=== PATIENT | female | born 1985 | race American Indian/Alaskan Native ===

== ENCOUNTER 2018-06-07 12:56 | Day surgery (SDC) | payer BC ==
[2018-06-07] MEDS ORDERED: Sodium Chloride 0.9% 1,000 ML IV ONE (13:48)
[2018-06-07 14:10] LABS: BASO % 0.6 % (0.0-2.0); EOS % 0.3 % (0.0-4.0); LYMPH # 1.1 K/uL (1.0-4.3); LYMPH % 13.3 % (20.0-40.0); MEAN CORPUSCULAR HEMOGLOBIN 21.2 pg (27.0-31.0); MEAN CORPUSCULAR HGB CONC 30.7 g/dL (33.0-37.0); MEAN PLATELET VOLUME 7.8 fL (7.2-11.7); MONO # 0.4 K/uL (0.0-0.8); MONO % 4.8 % (0.0-10.0); NEUT # 6.5 K/uL (1.8-7.0); RBC 4.7 Mil/uL (3.80-5.20); RED CELL DISTRIBUTION WIDTH 19.3 % (11.5-14.5)
[2018-06-07 14:15] VITALS: O2SAT 100; BMI 34.9
[2018-06-07 14:18] LABS: INR 1.2; PROTHROMBIN TIME 13.5 SECONDS (9.7-12.2)
[2018-06-07 14:23] LABS: SQUAMOUS EPITHIAL 2 /hpf (0-5); URINE BACTERIA RARE (<OCC); URINE BILIRUBIN NEGATIVE (NEGATIVE); URINE BLOOD 3+ (NEGATIVE); URINE CLARITY Hazy (Clear); URINE COLOR Yellow (YELLOW); URINE GLUCOSE (UA) NORMAL (Normal); URINE LEUKOCYTE ESTERASE NEG Leu/uL (Negative); URINE PROTEIN 2+ mg/dL (NEGATIVE); URINE UROBILINOGEN NORMAL mg/dL (0.2-1.0)
[2018-06-07 14:27] LABS: ALB/GLOB RATIO 1.3 (1.0-2.1); ALBUMIN 4.5 g/dL (3.5-5.0); ALT/SGPT 23 U/L (9-52); AST/SGOT 28 U/L (14-36); BLOOD UREA NITROGEN 7 mg/dL (7-17); CALCIUM 9.2 mg/dl (8.6-10.4); GFR NON-AFRICAN AMERICAN > 60
--- NOTE | 2018-06-07 15:04 | CP.PCM.HP ---
History of Present Illness - History of Present Illness History of Present Illness: 33y/o P0 LMP 06/06/2018 referred to ER after intially being evlauted for seere pelvic pain x 1 week. Pt preorts intial onsent on 05/29 with Right flank pain on thanksgiving constant with nause and ovmitng. pt when to ER in which a CT sca was done significant for 10cm right adnexla mass 4.4 cm left adnexl mass supscion for dermoid adn 10cm myoma. pt preorte the sharp severe pain only somewhat imrpoved with Tradmadol adn was dc home adn instructed to f/u o/p with hair designer. pt seen this mornign in my officed c/o severe 10/10 right flank pain, with no allevaitn factors. tp preorts the pain wax and wanes makign it difficyt to walk adn was uable to go to work today. pt reports nause and vomtiing. pt dneis any fever, chills, chest pain, sob, bowel or bladder compliants. Pt was referred to er to rule out ovarian torsin. While evated in ER pt complaing of severe rlq pain radiating to right flank /. OB: P0 STRUCTURES ENGINEER: fibroids, b/l ovarian cyst no pap, no sti LMP 06/06/18 duration 5 days PMH: Asthma, Hay Fever PSH: denies FHX: non contribory SHX: negative etoh/tboacc/drugs MEDS: Tramdol prn zofran prn, montelukast prn NKDA Present on Admission - Present on Admission Any Indicators Present on Admission: No Review of Systems - Review of Systems All systems: reviewed and no additional remarkable complaints except Review of Systems: distress - Constitutional Constitutional: As Per HPI - EENT Eyes: As Per HPI - Breasts Breasts: As Per HPI. absent: Change in Shape, Mass, Pain, Nipple Discharge, Nipple Inversion, Skin Changes, Swelling, Other - Cardiovascular Cardiovascular: As Per HPI - Respiratory Respiratory: absent: As Per HPI, Cough, Dyspnea, Hemoptysis, Dyspnea on Exertio n, Wheezing, Snoring, Stridor, Pain on Inspiration, Chest Congestion, Excessive Mucous Production, Change in Mucous Color, Pain with Coughing, Other - Gastrointestinal Gastrointestinal: Abdominal Pain, Bloating, Cramping - Genitourinary Genitourinary: As Per HPI - Reproductive: Female Reproductive:Female: As Per HPI - Menstruation Menstruation: As Per HPI - Musculoskeletal Musculoskeletal: As Per HPI, Muscle Weakness, Radiating Pain into Limb - Integumentary Integumentary: As Per HPI - Neurological Neurological: As Per HPI Past Patient History - Infectious Disease Hx of Infectious Diseases: None - Tetanus Immunizations Tetanus Immunization: Unknown - Past Medical History & Family History Past Medical History?: Yes Past Family History: Reviewed and not pertinent - Past Social History Smoking Status: Never Smoked Chewing Tobacco Use: No Cigar Use: No Alcohol: None - PULMONARY Hx Asthma: Yes (Sports enduced) - RENAL Other/Comment: Hey fever - PSYCHIATRIC Hx Substance Use: No - SURGICAL HISTORY Hx Surgeries: No - ANESTHESIA Hx Anesthesia: No Meds Allergies/Adverse Reactions: Allergies Allergy/AdvReac Type Severity Reaction Status Date / Time No Known Allergies Allergy Verified 06/07/18 13:32 Physical Exam - Constitutional Appears: Well, In Acute Distress - Head Exam Head Exam: ATRAUMATIC, NORMAL INSPECTION - Eye Exam Eye Exam: EOMI, Normal appearance Pupil Exam: PERRL - ENT Exam ENT Exam: Mucous Membranes Dry, Normal Exam - Respiratory Exam Respiratory Exam: Clear to Auscultation Bilateral, NORMAL BREATHING PATTERN - Cardiovascular Exam Cardiovascular Exam: +S1, +S2 - GI/Abdominal Exam GI & Abdominal Exam: Guarding, Soft, Tenderness - Rectal Exam Additional comments: External Gential Grosly normal Interla exam dererred- Results - Vital Signs Recent Vital Signs: Last Vital Signs Temp 98.1 F 06/07/18 13:41 Pulse 80 06/07/18 13:41 Resp 16 06/07/18 13:41 BP 123/77 06/07/18 13:41 Pulse Ox 100 06/07/18 13:41 - Labs Result Diagrams: 06/07/18 14:05 06/07/18 14:05 Labs: Laboratory Results - last 24 hr 06/07/18 06/07/18 06/07/18 14:05 14:05 14:05 WBC 8.0 RBC 4.70 Hgb 10.0 L Hct 32.4 L MCV 69.0 L MCH 21.2 L MCHC 30.7 L RDW 19.3 H Plt Count 337 MPV 7.8 Neut % (Auto) 81.0 H Lymph % (Auto) 13.3 L [place] % (Auto) 4.8 Eos % (Auto) 0.3 Baso % (Auto) 0.6 Neut # (Auto) 6.5 Lymph # (Auto) 1.1 [place] # (Auto) 0.4 Eos # (Auto) 0.0 Baso # (Auto) 0.0 PT 13.5 H INR 1.2 APTT 38 H Sodium Potassium Chloride Carbon Dioxide Anion Gap BUN Creatinine Est GFR ( Amer) Est GFR (Non-Af Amer) Random Glucose Calcium Total Bilirubin AST ALT Alkaline Phosphatase Total Protein Albumin Globulin Albumin/Globulin Ratio Urine Color Yellow Urine Clarity Hazy Urine pH 5.0 Ur Specific Bradley 1.034 H Urine Protein 2+ H Urine Glucose (UA) Normal Urine Ketones 2+ H Urine Blood 3+ H Urine Nitrate Negative Urine Bilirubin Negative Urine Urobilinogen Normal Ur Leukocyte Esterase Neg Urine WBC (Auto) 2 Urine RBC (Auto) 3121 H Ur Squamous Epith Cells 2 Urine Bacteria Rare 06/07/18 14:05 WBC RBC Hgb Hct MCV MCH MCHC RDW Plt Count MPV Neut % (Auto) Lymph % (Auto) [place] % (Auto) Eos % (Auto) Baso % (Auto) Neut # (Auto) Lymph # (Auto) [place] # (Auto) Eos # (Auto) Baso # (Auto) PT INR APTT Sodium 137 Potassium 3.7 Chloride 100 Carbon Dioxide 23 Anion Gap 17 BUN 7 Creatinine 0.8 Est GFR ( Amer) > 60 Est GFR (Non-Af Amer) > 60 Random Glucose 89 Calcium 9.2 Total Bilirubin 1.0 AST 28 ALT 23 Alkaline Phosphatase 82 Total Protein 8.1 Albumin 4.5 Globulin 3.6 Albumin/Globulin Ratio 1.3 Urine Color Urine Clarity Urine pH Ur Specific Bradley Urine Protein Urine Glucose (UA) Urine Ketones Urine Blood Urine Nitrate Urine Bilirubin Urine Urobilinogen Ur Leukocyte Esterase Urine WBC (Auto) Urine RBC (Auto) Ur Squamous Epith Cells Urine Bacteria Assessment & Plan (1) Ovarian torsion Assessment and Plan: 33 yo with severe pelvic pain seocndary to b/l pelvic mass, fibroids, suspcion for ovarian torsion -admit -investor relations manager to or -r/b/a/i of dx lap possible open oviarn cystecotmy possible oophrecotmy possible myoemcotmy possible open dw paeitn -OR/anestheis aware -labs -scds -abodminal prep Status: Acute (2) Adnexal mass Status: Acute (3) Pelvic pain Status: Acute (4) Fibroids Status: Acute
[2018-06-07] MEDS ORDERED: Bupivacaine-Epi 0.5%-1:200,000 PF Inj ONE (16:00)
[2018-06-07] MEDS ORDERED: ceFAZolin 1 gm FROZEN Premix 2 GM/100 ML ML IVPB ONE (16:00)
[2018-06-07] MEDS ORDERED: Midazolam 2 MG/2 ML VIAL ONE (16:04)
[2018-06-07] MEDS ORDERED: Rocuronium 10 mg/ml (5 ml) ONE ×2 (16:04→17:15)
[2018-06-07] MEDS ORDERED: Succinylcholine Chloride 20 mg/ml Syr (5 ml) IV ONE (16:04)
[2018-06-07] MEDS ORDERED: Propofol 10 mg/ml Inj (20 ML) ONE (16:04)
--- NOTE | 2018-06-07 16:49 | C.PDOC ---
History Of Present Illness 33 y/o female presents to ED with c/o right flank pain for "couple of days". Patient seen at [facility] yesterday, had CT scan that showed large pelvic mass. Patient states she went to CHILD NUTRITION DIRECTOR doctor today and recommended stat ultrasoun d and x lab to be done. Patient currently on menses and admits to vomiting for 2 days, denies fever, chills, diarrhea, dysuria or any other complaints at this time. Chief Complaint (Nursing): Abdominal Pain History Per: Patient History/Exam Limitations: no limitations Onset/Duration Of Symptoms: Days Current Symptoms Are (Timing): Still Present Past Medical History Reviewed: Historical Data, Nursing Documentation, Vital Signs Vital Signs: Last Vital Signs Temp 98.1 F 06/07/18 13:41 Pulse 80 06/07/18 13:41 Resp 16 06/07/18 13:41 BP 123/77 06/07/18 13:41 Pulse Ox 100 06/07/18 13:41 - Medical History PMH: Asthma (Sports enduced) Surgical History: No Surg Hx Family History: States: No Known Family Hx - Social History Hx Alcohol Use: No Hx Substance Use: No - Immunization History Hx Tetanus Toxoid Vaccination: No Hx Influenza Vaccination: No Hx Pneumococcal Vaccination: No Review Of Systems Constitutional: Negative for: Fever, Chills Gastrointestinal: Positive for: Vomiting, Abdominal Pain Genitourinary: Positive for: Other (flank pain). Negative for: Dysuria, Vaginal Discharge Skin: Negative for: Rash Physical Exam - Physical Exam Appears: Non-toxic, No Acute Distress Skin: Warm, Dry, No Rash Head: Atraumatic, Normacephalic Eye(s): bilateral: Normal Inspection Oral Mucosa: Moist Neck: Supple Cardiovascular: Rhythm Regular Respiratory: Normal Breath Sounds, No Rales, No Rhonchi, No Wheezing Gastrointestinal/Abdominal: Soft, Tenderness (Bilateral lower abdominal R>L), No Guarding, No Rebound Back: No CVA Tenderness Neurological/Psych: Oriented x3, Normal Speech, Normal Cognition ED Course And Treatment - Laboratory Results Result Diagrams: 06/07/18 14:05 06/07/18 14:05 O2 Sat by Pulse Oximetry: 100 (RA) Pulse Ox Interpretation: Normal Progress Note: D/w Dr. Barros CHILD NUTRITION DIRECTOR, took patient to OR for exploration. Disposition - Disposition Disposition: HOSPITALIZED Disposition Time: 15:10 Condition: GUARDED - Clinical Impression Clinical Impression: Flank pain - Scribe Statement The provider has reviewed the documentation as recorded by the Payalibeddie Prescott All medical record entries made by the Payalibeddie were at my direction and personally dictated by me. I have reviewed the chart and agree that the record accurately reflects my personal performance of the history, physical exam, medical decision making, and the department course for this patient. I have also personally directed, reviewed, and agree with the discharge instructions and disposition.
[2018-06-07] MEDS ORDERED: Neostigmine Methylsulfate 3mg/3ml Syringe IV ONE (17:31)
[2018-06-07] MEDS ORDERED: HYDROmorphone 0.5 mg/0.5 ml ISec IVP PRN (18:22)
--- NOTE | 2018-06-07 18:26 | PCM.SURG1 ---
Surgeon's Initial Post Op Note - Surgeon's Notes Surgeon: Shandra Barros MD Voice And Data Technician: Agustín Moralez MD Type of Anesthesia: General Endo Pre-Operative Diagnosis: Pelvic pain, ovarian torsion, bilatearl adnexal masses, leiomyomas Operative Findings: enlarged 15 week sizse fibriod uteurs, anterior myoma peduncated alogn anterio surface 7cm, enlarge right ovairan dermoid 10cm, left ovarian cyst 4cm appears physicolgic . right ovary and falloopian tue with torsion x 3 with blue dusk detorsed with good pefursion. Dr Agustín Moralez was surgical aides teacher and present for entire case adn essential in gainign laparasocpic entry, holidng camera, retraction, epxousre, helping to dissection dermoid ovairan cyst, obtian hejmostais and clsoe all layers Post-Operative Diagnosis: same as above, and ovarian detorsion Operation Performed: Ooperative laparscopy, right ovary adn fallopian tube detorsion, right ovarian cystecotmy, pelvic washings Specimen/Specimens Removed: pelvic washings, right ovarian cyst wall Estimated Blood Loss: EBL {In ML}: 25 Blood Products Given: N/A Drains Used: No Drains Post-Op Condition: Good Date of Surgery/Procedure: 06/07/18 Time of Surgery/Procedure: 16:30
[2018-06-07 19:09] VITALS: TEMP 97.9
[2018-06-07 21:13] VITALS: BP 114/68; PULSE 64; RESP 18
== END 2018-06-07 20:55 | disposition home or self-care (01) ==
LOC: C.ER 12:56 → C.SDS 15:20
PROVIDERS: ATTEND Obstetrics & Gynecology
DX: D39.11 Neoplasm of uncertain behavior of right ovary (principal); N83.511 Torsion of right ovary and ovarian pedicle; D25.9 Leiomyoma of uterus, unspecified; J45.909 Unspecified asthma, uncomplicated
CPT/HCPCS: 58662; 58999; 80053; 81001; 85025; 85610; 85730; 86850; 86900; 86920; 88104; 88305; 96360; 99285; C2615; J0690; J2001; J2250; J2405; J2704; J2710; J3010; J7030